=== PATIENT | female | born 1965 | race African-American/Black ===

== ENCOUNTER 2017-03-03 16:27 | Emergency (ER) | payer OTHER ==
[~2017-03-03] VITALS: Ht 157.5 cm; Wt 78.0 kg
[2017-03-03] MEDS ORDERED: MULT-1146 PO (16:39)
[2017-03-03] MEDS ORDERED: CHOL100026 PO (16:39)
[2017-03-03] MEDS ORDERED: CETI10TA6 PO (16:39)
[2017-03-03] MEDS ORDERED: VITAMIN E (16:39)
[2017-03-03] MEDS ORDERED: FISH OIL (16:39)
[2017-03-03] MEDS ORDERED: CYAN10009 PO (16:39)
[2017-03-03] MEDS ORDERED: ALBU18HF2 IH (16:39)
[2017-03-03 18:00] LABS: BASOPHILS % 0.3 % (0.0-2.0); EOSINOPHILS % 0.4 % (0.0-5.0); HEMATOCRIT. 38.5 % (36.0-48.0); HEMOGLOBIN. 12.9 g/dL (12.0-16.0); LYMPHOCYTES % 36.3 % (20.0-50.0); MEAN CORPUSCULAR HEMOGLOBIN 31.3 pg (28.0-32.0); MEAN CORPUSCULAR VOLUME 93.2 fL (81.0-99.0); MEAN PLATELET VOLUME 8.1 fl (7.4-10.4); MONOCYTES % 5.4 % (2.0-8.0); NEUTROPHILS % 57.6 % (40.0-76.0); PLATELET 265 x1000/uL (130-400); RED BLOOD CELL COUNT 4.13 mill/uL (4.2-5.4); RED CELL DISTRIBUTION WIDTH 13.7 % (11.6-14.6)
[2017-03-03 18:02] LABS: CHLORIDE 106 mEq/L (98-107)
[2017-03-03 18:08] LABS: CARBON DIOXIDE 26 mEq/L (21-32)
[2017-03-03 18:13] LABS: CREATINE KINASE 136 IU/L (26-192); TROPONIN I < 0.02 ng/mL (0.00-0.04)
[2017-03-03 19:12] LABS: D-DIMER 0.24 mg/L FEU (<0.50); PARTIAL THROMBOPLASTIN TIME 33.1 sec (24.0-34.0); PROTHROMBIN TIME 10.7 sec
[2017-03-03 20:18] VITALS: BP 103/63
== END 2017-03-03 20:20 | disposition home or self-care (01) ==
LOC: ER 17:19 → CANBEDREQ 23:27
DX: R07.89 Other chest pain (principal); J45.909 Unspecified asthma, uncomplicated; G35 Multiple sclerosis; Z88.8 Allergy status to other drugs, medicaments and biological substances; Z98.890 Other specified postprocedural states
CPT/HCPCS: 36415; 71010; 80053; 81025; 82550; 83605; 83690; 83880; 84443; 84484; 85025; 85379; 85610; 85730; 87040; 93005; 93970; 99285